=== PATIENT | male | born 2000 | race Hispanic/Latino ===

== ENCOUNTER 2019-05-01 00:59 | Emergency (ER) | payer MEDICAID, SELFPAY ==
[2019-05-01] MEDS ORDERED: Adacel (T-DAP) 0.5 ML SYRINGE ONE (01:09)
[2019-05-01] MEDS ORDERED: Ketorolac Tromethamine 30 MG/ML VIAL ONE (01:10)
[2019-05-01 01:24] LABS: #Basophils 0.1 thou/uL (0.0-0.2); #Eosinphils 0.1 thou/uL (0.0-0.7); #Monocytes 0.8 thou/uL (0.11-0.59); #Neutrophils 14.2 thou/uL (1.40-6.50); %Basophils 0.4 % (0.0-1.0); %Eosinophils 0.7 % (0.0-10.0); %Lymphocytes 11.6 % (28.0-48.0); %Monocytes 4.9 % (0.0-4.0); %Neutrophils 82.5 % (31.0-61.0); Hemoglobin 15.4 g/dL (14.0-18.0); Mean Corpuscular HGB CONC 34.8 g/dL (32.0-36.0); Mean Corpuscular Hemoglobin 30.1 pg (25.0-35.0); Mean Corpuscular Volume 86.6 fL (78.0-98.0); Platelet Count 207 thou/uL (130-400); Red Blood Cell (RBC) Count 5.13 mill/uL (4.00-5.20); White Blood Cell (WBC) Count 17.2 thou/uL (4.8-10.8)
[2019-05-01 01:36] LABS: PTT 27.2 SEC (22.9-36.1); Prothrombin Time 13.4 SEC (12.0-14.7)
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
[2019-05-01 01:47] LABS: ALT (SGPT) 52 U/L (8-55); AST (SGOT) 45 U/L (10-45); Albumin 4.5 g/dL (3.5-5.0); Alkaline Phosphatase 95 U/L (Less than 750); Anion Gap 13 mmol/L (10-20); BUN (Urea Nitrogen) 10 mg/dL (8.4-21.0); Bilirubin, Total 0.4 mg/dL (0.2-1.2); Calc. Creatinine Clearance 0 mL/min (70-130); Carbon Dioxide 26 mmol/L (22-29); Chloride 102 mmol/L (98-107); Estimated GFR-MDRD Greater than 90; Globulin 3.3 g/dL (2.4-3.5); Glucose 112 mg/dL (70-105); Potassium 3.9 mmol/L (3.5-5.1); Protein, Total 7.8 g/dL (6.0-8.3); Sodium 137 mmol/L (136-145)
[2019-05-01 01:48] LABS: Acetaminophen Less than 6.0 mcg/mL (10.0-30.0); Alcohol Less than 10 mg/dL (Less than 10); Salicylate Less than 8.0 mg/dL (15.0-30.0)
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
--- NOTE | 2019-05-06 12:25 | EKG ---
Test Reason : Blood Pressure : / mmHG Vent. Rate : 087 BPM Atrial Rate : 087 BPM P-R Int : 142 ms QRS Dur : 092 ms QT Int : 338 ms P-R-T Axes : 107 182 160 degrees QTc Int : 406 ms Suspect arm lead reversal, interpretation assumes no reversal Sinus rhythm with marked sinus arrhythmia Right superior axis deviation Abnormal ECG Confirmed by SHIRA LAST ([id number]), editorial director REJI TURPIN ([id number]) on 05/06/2019 12:25:19 PM Referred By: Confirmed By:SHIRA LAST
== END 2019-05-01 02:02 | disposition home or self-care (01) ==
LOC: ERS 00:59
DX: S21.101A Unspecified open wound of right front wall of thorax without penetration into thoracic cavity, initial encounter (principal); Z71.6 Tobacco abuse counseling; F17.210 Nicotine dependence, cigarettes, uncomplicated; X95.9XXA Assault by unspecified firearm discharge, initial encounter
CPT/HCPCS: 71045; 71260; 74177; 80053; 80307; 85025; 85610; 85730; 86850; 86900; 86901; 90715; 93005; 94760; G0390; J0690; J1885